=== PATIENT | male | born 1960 | race Two or more races ===

== ENCOUNTER 2019-07-01 12:02 | Outpatient (CLI) | payer BC ==
--- NOTE | 2019-07-01 17:02 | Diagnostic Imaging Report ---
Indication: Cough Technique: 2 views of the chest Comparison: None Findings: Lungs and pleural spaces are clear. The heart size is normal. The bones are unremarkable. No significant interim change. Impression: Negative
== END 2019-07-01 14:02 | disposition home or self-care (01) ==
LOC: RAD 12:02
DX: R05 Cough (principal)
CPT/HCPCS: 71046